=== PATIENT | female | born 1990 | race Caucasian/White ===

== ENCOUNTER → 2024-07-12 14:56 | Outpatient (REF) | payer BC, SELFPAY | LOC: RAD 14:56 | PROVIDERS: ATTENDING PHYSICIAN Nurse Practitioner Family | DX: M79.604 Pain in right leg (principal) | CPT/HCPCS: 93971 ==

== ENCOUNTER → 2024-10-26 14:34 | Outpatient (REF) | payer BC, SELFPAY | LOC: RAD 14:34 | PROVIDERS: ATTENDING PHYSICIAN Internal Medicine Hematology & Oncology; FAMILY PHYSICIAN Nurse Practitioner Adult Health | DX: R59.0 Localized enlarged lymph nodes (principal) | CPT/HCPCS: 76536 ==

== ENCOUNTER → 2024-10-27 12:21 | Outpatient (REF) | payer BC, SELFPAY | LOC: RAD 12:21 | PROVIDERS: ATTENDING PHYSICIAN Nurse Practitioner Adult Health; FAMILY PHYSICIAN Nurse Practitioner Adult Health | DX: R59.0 Localized enlarged lymph nodes (principal) | CPT/HCPCS: 70491; Q9967 ==

== ENCOUNTER 2024-11-01 06:23 | Day surgery (SDC) | payer BC, SELFPAY ==
[2024-11-01] VITALS (9 sets, daily range): BP systolic 107–129; BP diastolic 63–89; BMI 37.0
[2024-11-01] MEDS: TYLENOL 1000 MG PO (11:54)
[2024-11-01] MEDS: SUBLIMAZE 25 MCG IV (14:49)
== END 2024-11-01 15:40 | disposition home or self-care (01) ==
LOC: SDS 06:23
PROVIDERS: ATTENDING PHYSICIAN Otolaryngology
DX: C81.12 Nodular sclerosis Hodgkin lymphoma, intrathoracic lymph nodes (principal); R59.0 Localized enlarged lymph nodes
CPT/HCPCS: 38510; 88305; 88341; 88342; 88365

== ENCOUNTER → 2024-11-09 13:00 | Outpatient (REF) | payer BC, SELFPAY | LOC: RCS 13:00 | PROVIDERS: ATTENDING PHYSICIAN Internal Medicine Hematology & Oncology; FAMILY PHYSICIAN Nurse Practitioner Adult Health | DX: C81.90 Hodgkin lymphoma, unspecified, unspecified site (principal); R59.0 Localized enlarged lymph nodes; R53.82 Chronic fatigue, unspecified; Z68.37 Body mass index [BMI] 37.0-37.9, adult | CPT/HCPCS: 93306; 93356 ==

== ENCOUNTER → 2024-11-10 07:07 | Outpatient (REF) | payer BC, SELFPAY ==
[2024-11-10 07:31] LABS: % Basophils 0.6 % (0-2); % Eosinophils 1.7 % (0-6); % Immature Granulocytes 0.5 % (0-0.5); % Lymphocytes 19.4 % (20.5-51.1); % Neutrophils 71.8 % (42.2-75.2); Absolute Basophils 0.1 10^3/uL (0-0.2); Absolute Eosinophils 0.1 10^3/uL (0-0.7); Absolute Lymphocytes 1.6 10^3/uL (1.2-3.4); Absolute Monocytes 0.5 10^3/uL (0.1-0.6); Absolute Neutrophils 6.1 10^3/uL (1.4-6.5); Hematocrit 39.6 % (37.0-47.0); Hemoglobin 12.5 g/dL (12.0-16.0); Mean Corp Hgb Conc. 31.6 g/dL (33.0-37.0); Mean Corpuscular Hgb 25.7 pg (27.0-31.0); Mean Corpuscular Volume 81.5 fL (81.0-99.0); Mean Platelet Volume 10.4 fL (7.4-10.4); Nucleated Red Blood Cells % 0 %; Platelet Count 358 10^3/uL (130-400); Red Blood Cell Count 4.86 10^6/uL (4.20-5.40); Red Cell Dist. Width 13.1 % (11.5-14.5); White Blood Cell Count 8.5 10^3/uL (4.8-10.8)
[2024-11-10 07:35] VITALS: BP 131/90; BP_SYST 92
[2024-11-10 07:38] VITALS: BMI 36.9
[2024-11-10 07:41] LABS: INR 0.97; PT 13.4 Sec (11.4-14.6)
[2024-11-10] MEDS: NSS (PRESERVATIVE FREE) 0.25 ML IV (08:12)
[2024-11-10] MEDS: ATIVAN 0.5 MG IV (08:16)
[2024-11-10] MEDS: FLUSH (NSS) 1 FLUSH IV (08:17)
[2024-11-10] MEDS: ANCEF 10 IV (09:30)
[2024-11-10 10:20] VITALS: BP 121/76
== END ==
LOC: RADI 07:07
PROVIDERS: ATTENDING PHYSICIAN Internal Medicine Hematology & Oncology; FAMILY PHYSICIAN Physician Assistant
DX: C81.90 Hodgkin lymphoma, unspecified, unspecified site (principal)
CPT/HCPCS: 88305; 88311; 88312; 36415; 36561; 38222; 76937; 77001; 77012; 85025; 85610; 88313; 99152; 99153; C1788

== ENCOUNTER → 2024-11-14 12:26 | Outpatient (REF) | payer BC, SELFPAY | LOC: RSP 12:26 | PROVIDERS: ATTENDING PHYSICIAN Nurse Practitioner Adult Health; FAMILY PHYSICIAN Nurse Practitioner Adult Health | DX: C81.90 Hodgkin lymphoma, unspecified, unspecified site (principal) | CPT/HCPCS: 94727; 94729; 88738; 94010 ==

== ENCOUNTER → 2024-11-20 15:18 | Outpatient (REF) | payer BC, SELFPAY | LOC: RAD 15:18 | PROVIDERS: ATTENDING PHYSICIAN Internal Medicine Hematology & Oncology; FAMILY PHYSICIAN Nurse Practitioner Adult Health | DX: R59.0 Localized enlarged lymph nodes (principal); R53.82 Chronic fatigue, unspecified; Z68.37 Body mass index [BMI] 37.0-37.9, adult; C81.90 Hodgkin lymphoma, unspecified, unspecified site | CPT/HCPCS: 71046 ==

== ENCOUNTER → 2024-11-27 15:20 | Outpatient (REF) | payer BC, SELFPAY ==
[2024-11-27 13:51] LABS: Urine Albumin Negative (Neg - Trace); Urine Bilirubin Negative (Negative); Urine Character Clear (Clear); Urine Color Yellow; Urine Glucose Negative (Negative); Urine Ketone Negative (Negative); Urine Leukocyte Negative (Negative); Urine Nitrite Negative (Negative); Urine Occult Blood Negative (Negative); Urine Specific Gravity 1.005 (<1.030); Urine Urobilinogen Negative (Neg - 1+)
[2024-11-27 14:11] LABS: Urine Red Blood Cell 0-2 /HPF (0-2); Urine Squamous Cell 0-2 /LPF (Few); Urine White Cell 0-2 /HPF (0-5)
== END ==
LOC: OIDL 15:20
PROVIDERS: ATTENDING PHYSICIAN Internal Medicine Hematology & Oncology
DX: R59.0 Localized enlarged lymph nodes (principal); R53.82 Chronic fatigue, unspecified; Z68.37 Body mass index [BMI] 37.0-37.9, adult; C81.90 Hodgkin lymphoma, unspecified, unspecified site
CPT/HCPCS: 81003; 81015; 87086

== ENCOUNTER → 2024-11-30 15:40 | Outpatient (REF) | payer BC, SELFPAY | LOC: RAD 15:40 | PROVIDERS: ATTENDING PHYSICIAN Internal Medicine Hematology & Oncology; FAMILY PHYSICIAN Nurse Practitioner Adult Health | DX: R59.0 Localized enlarged lymph nodes (principal); R53.82 Chronic fatigue, unspecified; Z68.37 Body mass index [BMI] 37.0-37.9, adult; R74.8 Abnormal levels of other serum enzymes; C81.90 Hodgkin lymphoma, unspecified, unspecified site | CPT/HCPCS: 93971 ==

== ENCOUNTER → 2024-12-07 13:28 | Outpatient (REF) | payer BC, SELFPAY ==
[2024-12-07 12:11] LABS: % Basophils 1.4 % (0-2); % Eosinophils 4.8 % (0-6); % Monocytes 9.2 % (1.7-9.3); % Neutrophils 13.6 % (42.2-75.2); Absolute Eosinophils 0.1 10^3/uL (0-0.7); Absolute Lymphocytes 1.5 10^3/uL (1.2-3.4); Absolute Monocytes 0.2 10^3/uL (0.1-0.6); Hematocrit 36.5 % (37.0-47.0); Hemoglobin 11.7 g/dL (12.0-16.0); Mean Corp Hgb Conc. 32.1 g/dL (33.0-37.0); Mean Corpuscular Hgb 25.7 pg (27.0-31.0); Mean Corpuscular Volume 80.2 fL (81.0-99.0); Mean Platelet Volume 10.1 fL (7.4-10.4); Platelet Count 311 10^3/uL (130-400); Red Blood Cell Count 4.55 10^6/uL (4.20-5.40); Red Cell Dist. Width 14.2 % (11.5-14.5)
[2024-12-07 12:13] LABS: Absolute Neutrophils 0.3 10^3/uL (1.4-6.5); White Blood Cell Count 2.1 10^3/uL (4.8-10.8)
[2024-12-07 12:46] LABS: ALT (SGPT) 42 U/L (0-35); AST (SGOT) 25 U/L (14-36); Albumin 4.1 g/dl (3.5-5.0); Alkaline Phosphatase 95 U/L (38-126); Blood Urea Nitrogen 11 mg/dl (7-17); Calcium 9.5 mg/dl (8.4-10.2); Carbon Dioxide 29 mmol/L (22-30); Chloride 103 mmol/L (98-107); Glucose 109 mg/dl (70-99); Potassium 4.4 mmol/L (3.5-5.1); Sodium 141 mmol/L (135-145); Total Bilirubin 0.4 mg/dl (0.2-1.3); Total Protein 6.9 g/dl (6.3-8.2); eGFR > 60.00
== END ==
LOC: OIDL 13:28
PROVIDERS: ATTENDING PHYSICIAN Internal Medicine Hematology & Oncology
DX: R59.0 Localized enlarged lymph nodes (principal); R53.82 Chronic fatigue, unspecified; C81.90 Hodgkin lymphoma, unspecified, unspecified site
CPT/HCPCS: 80053; 85025

== ENCOUNTER → 2024-12-11 08:52 | Outpatient (REF) | payer BC, SELFPAY ==
[2024-12-11 09:01] LABS: % Basophils 0.4 % (0-2); % Eosinophils 0.4 % (0-6); % Lymphocytes 54.9 % (20.5-51.1); % Monocytes 4.3 % (1.7-9.3); Absolute Lymphocytes 1.3 10^3/uL (1.2-3.4); Absolute Monocytes 0.1 10^3/uL (0.1-0.6); Hematocrit 35.8 % (37.0-47.0); Hemoglobin 11.6 g/dL (12.0-16.0); Mean Corp Hgb Conc. 32.4 g/dL (33.0-37.0); Mean Corpuscular Hgb 25.8 pg (27.0-31.0); Mean Corpuscular Volume 79.7 fL (81.0-99.0); Mean Platelet Volume 10.8 fL (7.4-10.4); Platelet Count 145 10^3/uL (130-400); Red Blood Cell Count 4.49 10^6/uL (4.20-5.40); Red Cell Dist. Width 14.4 % (11.5-14.5)
[2024-12-11 09:03] LABS: White Blood Cell Count 2.3 10^3/uL (4.8-10.8)
[2024-12-11 09:04] LABS: Absolute Neutrophils 0.9 10^3/uL (1.4-6.5)
== END ==
LOC: OIDL 08:52
PROVIDERS: ATTENDING PHYSICIAN Internal Medicine Hematology & Oncology
DX: R59.0 Localized enlarged lymph nodes (principal)
CPT/HCPCS: 85025

== ENCOUNTER → 2024-12-15 13:15 | Outpatient (REF) | payer BC, SELFPAY ==
[2024-12-15 12:08] LABS: % Basophils 1.1 % (0-2); % Eosinophils 0.7 % (0-6); % Immature Granulocytes 0.7 % (0-0.5); % Lymphocytes 47.5 % (20.5-51.1); % Monocytes 2.5 % (1.7-9.3); % Neutrophils 47.5 % (42.2-75.2); Absolute Lymphocytes 1.3 10^3/uL (1.2-3.4); Absolute Monocytes 0.1 10^3/uL (0.1-0.6); Absolute Neutrophils 1.3 10^3/uL (1.4-6.5); Hematocrit 35.7 % (37.0-47.0); Hemoglobin 11.7 g/dL (12.0-16.0); Mean Corp Hgb Conc. 32.8 g/dL (33.0-37.0); Mean Corpuscular Volume 79.3 fL (81.0-99.0); Mean Platelet Volume 11.8 fL (7.4-10.4); Platelet Count 256 10^3/uL (130-400); Red Cell Dist. Width 14.2 % (11.5-14.5); White Blood Cell Count 2.8 10^3/uL (4.8-10.8)
== END ==
LOC: OIDL 13:15
PROVIDERS: ATTENDING PHYSICIAN Internal Medicine Hematology & Oncology
DX: R59.0 Localized enlarged lymph nodes (principal); R53.82 Chronic fatigue, unspecified; Z68.37 Body mass index [BMI] 37.0-37.9, adult
CPT/HCPCS: 85025

== ENCOUNTER → 2024-12-26 15:18 | Outpatient (REF) | payer BC, SELFPAY ==
[2024-12-26 10:40] LABS: % Basophils 0.7 % (0-2); % Eosinophils 1.3 % (0-6); % Immature Granulocytes 8.7 % (0-0.5); % Lymphocytes 37.6 % (20.5-51.1); % Monocytes 17.1 % (1.7-9.3); % Neutrophils 34.6 % (42.2-75.2); Absolute Eosinophils 0.1 10^3/uL (0-0.7); Absolute Immature Granulocytes 0.5 10^3/uL (0-0.05); Absolute Lymphocytes 2.3 10^3/uL (1.2-3.4); Absolute Neutrophils 2.1 10^3/uL (1.4-6.5); Hemoglobin 12.2 g/dL (12.0-16.0); Mean Corp Hgb Conc. 31.3 g/dL (33.0-37.0); Mean Corpuscular Hgb 25.7 pg (27.0-31.0); Mean Corpuscular Volume 82.1 fL (81.0-99.0); Platelet Count 322 10^3/uL (130-400); Red Blood Cell Count 4.75 10^6/uL (4.20-5.40); Red Cell Dist. Width 15.8 % (11.5-14.5)
[2024-12-26 10:58] LABS: ALT (SGPT) 42 U/L (0-35); AST (SGOT) 26 U/L (14-36); Alkaline Phosphatase 81 U/L (38-126); Blood Urea Nitrogen 12 mg/dl (7-17); Calcium 9.6 mg/dl (8.4-10.2); Carbon Dioxide 29 mmol/L (22-30); Chloride 103 mmol/L (98-107); Glucose 109 mg/dl (70-99); Potassium 4.4 mmol/L (3.5-5.1); Sodium 141 mmol/L (135-145); Total Bilirubin 0.3 mg/dl (0.2-1.3); Total Protein 6.8 g/dl (6.3-8.2); eGFR > 60.00
== END ==
LOC: OIDL 15:18
PROVIDERS: ATTENDING PHYSICIAN Internal Medicine Hematology & Oncology
DX: R59.0 Localized enlarged lymph nodes (principal); R53.82 Chronic fatigue, unspecified
CPT/HCPCS: 80053; 85025

== ENCOUNTER → 2025-01-09 14:34 | Outpatient (REF) | payer BC, SELFPAY ==
[2025-01-09 11:24] LABS: % Basophils 1.8 % (0-2); % Eosinophils 3.1 % (0-6); % Immature Granulocytes 0.3 % (0-0.5); % Monocytes 16.8 % (1.7-9.3); Absolute Basophils 0.1 10^3/uL (0-0.2); Absolute Eosinophils 0.1 10^3/uL (0-0.7); Absolute Lymphocytes 1.5 10^3/uL (1.2-3.4); Absolute Monocytes 0.6 10^3/uL (0.1-0.6); Absolute Neutrophils 1.1 10^3/uL (1.4-6.5); Hematocrit 37.4 % (37.0-47.0); Mean Corp Hgb Conc. 32.1 g/dL (33.0-37.0); Mean Corpuscular Hgb 25.8 pg (27.0-31.0); Mean Corpuscular Volume 80.4 fL (81.0-99.0); Nucleated Red Blood Cells % 0 %; Platelet Count 343 10^3/uL (130-400); Red Blood Cell Count 4.65 10^6/uL (4.20-5.40); Red Cell Dist. Width 17.1 % (11.5-14.5); White Blood Cell Count 3.3 10^3/uL (4.8-10.8)
[2025-01-09 11:32] LABS: ALT (SGPT) 24 U/L (0-35); AST (SGOT) 20 U/L (14-36); Albumin 4.1 g/dl (3.5-5.0); Alkaline Phosphatase 75 U/L (38-126); Blood Urea Nitrogen 13 mg/dl (7-17); Calcium 9.5 mg/dl (8.4-10.2); Carbon Dioxide 30 mmol/L (22-30); Chloride 102 mmol/L (98-107); Glucose 92 mg/dl (70-99); Potassium 4.2 mmol/L (3.5-5.1); Sodium 139 mmol/L (135-145); Total Bilirubin 0.4 mg/dl (0.2-1.3); Total Protein 6.8 g/dl (6.3-8.2); eGFR > 60.00
== END ==
LOC: OIDL 14:34
PROVIDERS: ATTENDING PHYSICIAN Internal Medicine Hematology & Oncology
DX: R59.0 Localized enlarged lymph nodes (principal)
CPT/HCPCS: 80053; 85025

== ENCOUNTER → 2025-01-22 10:32 | Outpatient (REF) | payer BC, SELFPAY | LOC: RAD 10:32 | PROVIDERS: ATTENDING PHYSICIAN Internal Medicine Hematology & Oncology; FAMILY PHYSICIAN Nurse Practitioner Adult Health | DX: R53.82 Chronic fatigue, unspecified (principal); R59.0 Localized enlarged lymph nodes; Z68.37 Body mass index [BMI] 37.0-37.9, adult; C81.90 Hodgkin lymphoma, unspecified, unspecified site; R74.8 Abnormal levels of other serum enzymes | CPT/HCPCS: 76536 ==

== ENCOUNTER → 2025-01-24 13:40 | Outpatient (REF) | payer BC, SELFPAY ==
[2025-01-24 13:54] VITALS: BP 137/91; BP_SYST 95
== END ==
LOC: RADI 13:40
PROVIDERS: ATTENDING PHYSICIAN Internal Medicine Hematology & Oncology; FAMILY PHYSICIAN Nurse Practitioner Adult Health
DX: C73 Malignant neoplasm of thyroid gland (principal); Z85.71 Personal history of Hodgkin lymphoma
CPT/HCPCS: 88173; 10005

== ENCOUNTER → 2025-02-13 15:43 | Outpatient (REF) | payer BC, SELFPAY | LOC: RCS 15:43 | PROVIDERS: ATTENDING PHYSICIAN Internal Medicine Hematology & Oncology; FAMILY PHYSICIAN Nurse Practitioner Adult Health | DX: C81.90 Hodgkin lymphoma, unspecified, unspecified site (principal); R59.0 Localized enlarged lymph nodes; R53.82 Chronic fatigue, unspecified; Z68.37 Body mass index [BMI] 37.0-37.9, adult; R74.8 Abnormal levels of other serum enzymes; C73 Malignant neoplasm of thyroid gland | CPT/HCPCS: 93306; 93356 ==

== ENCOUNTER 2025-02-18 17:50 | Emergency (ER) | payer BC, SELFPAY ==
[2025-02-18 17:54] VITALS: BP 127/80
[2025-02-18 18:13] LABS: % Basophils 0.6 % (0-2); % Eosinophils 3.1 % (0-6); % Immature Granulocytes 0.2 % (0-0.5); % Lymphocytes 20.6 % (20.5-51.1); % Monocytes 7.4 % (1.7-9.3); % Neutrophils 68.1 % (42.2-75.2); Absolute Basophils 0.1 10^3/uL (0-0.2); Absolute Eosinophils 0.3 10^3/uL (0-0.7); Absolute Lymphocytes 1.7 10^3/uL (1.2-3.4); Absolute Monocytes 0.6 10^3/uL (0.1-0.6); Absolute Neutrophils 5.7 10^3/uL (1.4-6.5); Hematocrit 35.9 % (37.0-47.0); Hemoglobin 11.7 g/dL (12.0-16.0); Mean Corp Hgb Conc. 32.6 g/dL (33.0-37.0); Mean Corpuscular Hgb 26.7 pg (27.0-31.0); Mean Platelet Volume 10.8 fL (7.4-10.4); Nucleated Red Blood Cells % 0 %; Platelet Count 260 10^3/uL (130-400); Red Blood Cell Count 4.38 10^6/uL (4.20-5.40); Red Cell Dist. Width 17.4 % (11.5-14.5); White Blood Cell Count 8.4 10^3/uL (4.8-10.8)
[2025-02-18 18:22] LABS: INR 0.85
[2025-02-18 18:33] LABS: ALT (SGPT) 24 U/L (0-35); AST (SGOT) 22 U/L (14-36); Albumin 4.2 g/dl (3.5-5.0); Alkaline Phosphatase 84 U/L (38-126); Blood Urea Nitrogen 19 mg/dl (7-17); Calcium 9.3 mg/dl (8.4-10.2); Carbon Dioxide 29 mmol/L (22-30); Chloride 108 mmol/L (98-107); Glucose 103 mg/dl (70-99); Potassium 4.4 mmol/L (3.5-5.1); Sodium 142 mmol/L (135-145); Total Bilirubin 0.3 mg/dl (0.2-1.3); Total Protein 6.9 g/dl (6.3-8.2); eGFR > 60.00
[2025-02-18 18:49] LABS: Troponin I < 0.012 ng/ml
--- NOTE | 2025-02-18 19:50 | ED.GENMED ---
History of Present Illness
General
Chief Complaint: Chest Pain
Time Seen by Provider: 02/18/25 19:40
History of Present Illness
History of Present Illness:
Patient is a 34-year-old woman history of Hodgkin's lymphoma, thyroid cancer on chemotherapy presenting to the emergency department chest pain. She woke up at 10 AM with chest pain that was pleuritic. It is not exertional. Has never happened to
her before. No leg swelling hemoptysis. No history of blood clots. She is not on any blood thinners. She called her oncologist who told her to come to the emergency department for evaluation. No family history of cardiac disease. No personal
history of cardiac disease. She called her oncologist who recommended her to go to the emergency department to rule out PE.
Past History
Past History
ED Past Medical History: HTN
ED Past Surgical History: None
Social History
Tobacco: Non-smoker
Alcohol: Occasional
Personal: Single
Living: with family
Employment: Employed
Phy Exam
Physical Exam
Physical Exam:
GENERAL: in no acute distress
HEENT: normocephalic, extraocular movements intact, moist oral mucosa
NECK: normal inspection
RESPIRATORY: no respiratory distress, clear to auscultation bilaterally
CARDIOVASCULAR: regular rate and rhythm
ABDOMEN/: soft, non-distended, non-tender to palpation, no rebound or guarding
EXTREMITIES: non-tender, no edema/swelling
NEUROLOGIC: awake and alert, moves all extremities
SKIN: warm
Scores
Heart Score for Chest Pain Patients
STEMI patient?: Not applicable
Course
Orders/Labs/Results
Orders:
Orders
02/18/25 17:51
Electrocardiogram (*1) Urgent
Reason for Study: Chest Pain
EKG- Treatment ONCE
02/18/25 18:04
Complete Blood Count/With Diff Urgent
Comprehensive Metabolic Panel Urgent
Prothrombin Time Urgent
Troponin I Urgent
02/18/25 19:41
CT Chest PE Study Urgent
Comment:
Reason For Exam: chest pain
Abnormal Lab Results
02/18/25
18:04
Hgb 11.7 L g/dL
(12.0-16.0)
Hct 35.9 L %
(37.0-47.0)
MCH 26.7 L pg
(27.0-31.0)
MCHC 32.6 L g/dL
(33.0-37.0)
RDW 17.4 H %
(11.5-14.5)
MPV 10.8 H fL
(7.4-10.4)
Chloride 108 H mmol/L
(98-107)
BUN 19 H mg/dl
(7-17)
Glucose 103 H mg/dl
(70-99)
02/18/25 18:04
02/18/25 18:04
Vital Signs
Initial and Last Documented VS:
Initial Vital Signs
Temp Pulse Resp BP Pulse Ox
98.4 F 89 18 127/80 99
02/18/25 17:54 02/18/25 17:54 02/18/25 17:54 02/18/25 17:54 02/18/25 17:54
Last Documented Vital Signs
Temp Pulse Resp BP Pulse Ox
98.4 F 89 18 127/80 99
02/18/25 17:54 02/18/25 17:54 02/18/25 17:54 02/18/25 17:54 02/18/25 17:54
MDM/Problems Addressed
Differential Diagnosis Includes:
Patient is a 34-year-old woman with history of Hodgkin's lymphoma, thyroid cancer on treatment presenting to the emergency department with pleuritic chest pain that started at 10 AM. On arrival patient's vital signs are unremarkable and exam is
reassuring. Concern for PE atypical ACS worsening malignancy. Blood work obtained prior to my evaluation is unremarkable. Troponin is normal. Given that the chest pain has been ongoing since 10 AM will obtain single troponon EKG per my
interpretation normal sinus rhythm. Will proceed with CT PE
*Critical Care Note
Total Time (30-74mins, 75-104mins- exclusive of procedures): Not Applicable
Update Note
Update Note:
CT scan per my interpretation with no saddle PE. Per the official read no acute disease and no evidence of PE. Will discharge patient at this time.
ED Attending Note
-
Portions of this chart may have been created with voice recognition software.� Occasional wrong word or��sound alike� substitutions may have occurred due to the inherent limitations of voice recognition software.
Discharge Plan
Departure
Patient Disposition: Home (Routine Discharge)
Date of Disposition: 02/18/25
Time of Disposition: 21:47
Patient with high blood pressure during this ER visit?: No
Discharge Problem:
Chest pain
Instructions: Chest Pain PCP Follow Up
Prescriptions:
No Action
No Current Medications
0
Referrals:
UNKNOWN - PT DOES,NOT KNOW [Unknown Provider]
Activity Restrictions/Additional Instructions:
You were evaluated in the Emergency Department today for chest pain. Your evaluation has shown no signs of medical conditions requiring emergent intervention at this time, however we recommend that you follow up with your primary care physician or
your manager inpatient as soon as possible for further testing as an outpatient.
Please schedule an appointment for follow up with your primary care physician as soon as possible.
Return to the Emergency Department if you experience worsening or uncontrolled chest pain, shortness of breath, light headedness, feeling faint, nausea, vomiting, or any other concerning symptoms.
Thank you for choosing us for your care.
Interventions
Interventions:
*Risk Screen - Suicide Last Done: 02/18/25 17:54
*General Assessment Last Done: 02/18/25 17:54
*Neglect/Abuse Screening Last Done: 02/18/25 17:54
ED- Cardiac Assessment Last Done: 02/18/25 19:51
Discharge Date and Time
Print Language: BENGALI
== END 2025-02-18 22:06 | disposition home or self-care (01) ==
LOC: EMR 17:50
PROVIDERS: Emergency Medicine; EMERGENCY PHYSICIAN Student in an Organized Health Care Education/Training Program; FAMILY PHYSICIAN Nurse Practitioner Adult Health
DX: R07.89 Other chest pain (principal); C73 Malignant neoplasm of thyroid gland; I10 Essential (primary) hypertension; Z85.71 Personal history of Hodgkin lymphoma
CPT/HCPCS: 99284; 71275; 80053; 84484; 85025; 85610; 93005; Q9967

== ENCOUNTER → 2025-03-05 16:29 | Outpatient (REF) | payer BC, SELFPAY | LOC: RAD 16:29 | PROVIDERS: ATTENDING PHYSICIAN Nurse Practitioner Adult Health; FAMILY PHYSICIAN Nurse Practitioner Adult Health | DX: C81.90 Hodgkin lymphoma, unspecified, unspecified site (principal) | CPT/HCPCS: 71260; Q9967 ==

== ENCOUNTER 2025-05-01 06:05 | Day surgery (SDC) | payer BC, SELFPAY ==
[2025-04-18 08:54] LABS: Hematocrit 39.8 % (37.0-47.0); Hemoglobin 12.5 g/dL (12.0-16.0); Mean Corp Hgb Conc. 31.4 g/dL (33.0-37.0); Mean Corpuscular Volume 82.6 fL (81.0-99.0); Platelet Count 232 10^3/uL (130-400); Red Cell Dist. Width 13.7 % (11.5-14.5)
[2025-04-18 09:08] LABS: INR 0.90; PT 12.6 Sec (11.4-14.6)
[2025-04-18 09:09] LABS: APTT 28.2 Sec (23.4-35.0)
[2025-04-18 10:07] LABS: ALT (SGPT) 22 U/L (0-35); AST (SGOT) 19 U/L (14-36); Albumin 4.3 g/dl (3.5-5.0); Alkaline Phosphatase 95 U/L (38-126); Blood Urea Nitrogen 14 mg/dl (7-17); Calcium 9.0 mg/dl (8.4-10.2); Carbon Dioxide 26 mmol/L (22-30); Chloride 107 mmol/L (98-107); Glucose 92 mg/dl (70-99); Potassium 4.7 mmol/L (3.5-5.1); Sodium 140 mmol/L (135-145); Total Protein 6.9 g/dl (6.3-8.2); eGFR > 60.00
[2025-04-18 13:48] VITALS: BMI 37.2
[2025-05-01] VITALS (8 sets, daily range): BP systolic 110–138; BP diastolic 65–86; BMI 37.2
[2025-05-01] MEDS: NEURONTIN 300 MG PO (06:35)
[2025-05-01] MEDS: TYLENOL 1000 MG PO (06:35)
[2025-05-01] MEDS: HEPARIN 5000 UNITS SC (06:48)
[2025-05-01] MEDS: NORMOSOL-R/PLASMALYTE-A 1000 IV (06:48)
--- NOTE | 2025-05-01 09:40 | OR.RPT ---
Operative Report
Operative Report
DATE OF OPERATION: May 01, 2025
PREOPERATIVE DIAGNOSIS: Thyroid Cancer - C73
POSTOPERATIVE DIAGNOSIS: Same
SURGEON: Nixon Meehan M.D.
OPERATION: Right Thyroidectomy and Limited Neck Dissection - 10239
ANESTHESIA: GET
ESTIMATED BLOOD LOSS: 3 cc
DRAINS: None
SPECIMEN: Left thyroid lobe and isthmus with overlying strap muscle & right level paratracheal tissue
FINDINGS: Right thyroid tumor involving the overlying strap muscle
COMPLICATIONS: None
PROCEDURE:
The patient was taken to the operating room and placed in the usual supine position. After adequate general endotracheal anesthesia was established, the patient�s neck was extended, prepped, and draped in the typical sterile fashion. A 4 cm
transcervical incision was made two fingerbreadths above the sternal notch. The skin incision was made with the #15 blade, which was taken through the skin into the subcutaneous tissue. The underlying platysma muscle was divided, and subplatysmal
flaps were created superiorly to the thyroid cartilage and inferiorly to the sternal notch. Strap muscles were identified and at the midline.
Attention was turned to the patient�s right thyroid lobe. The right thyroid lobe was mobilized medially. During this process, the right middle thyroid vein and inferior thyroid artery were dissected and ligated with Ligasure. The tumor was noted to
be stuck to the overlying muscle. The potion of the muscle was excised and left on the tumor. Next, the right superior pole was taken down by dissecting and transecting the superior pole vessels with a Ligasure. The right thyroid lobe was mobilized
medially. During this process, the right recurrent laryngeal nerve was identified and preserved throughout its entire course. The right superior parathyroid gland was identified and preserved. The right thyroid lobe with isthmus was resected from
the trachea and sent to the pathology department.
At this time, the neck dissection was performed. The tissue between the right carotid artery to the trachea into the anterior mediastinum was carefully dissected. The previously identified recurrent laryngeal nerve and parathyroid glands were
preserved. The tissue was removed and sent to the pathology department.
After achieving adequate hemostasis, the strap muscle was approximated with #3-0 Vicryl in a running fashion, and the platysma muscles were reapproximated with #3-0 Vicryl in an interrupted manner. The skin was then closed with #4-0 Monocryl in a
running subcuticular technique. Steri-strips and sterile dressings were applied. The patient tolerated the procedure well. The final instrument, needle, and sponge counts were correct.
[2025-05-01] MEDS: DILAUDID 0.25 MG IV (09:54)
== END 2025-05-01 11:30 | disposition home or self-care (01) ==
LOC: SDS 06:05
PROVIDERS: ATTENDING PHYSICIAN Surgery; FAMILY PHYSICIAN Nurse Practitioner Adult Health
DX: C73 Malignant neoplasm of thyroid gland (principal); C77.1 Secondary and unspecified malignant neoplasm of intrathoracic lymph nodes
CPT/HCPCS: 60220; 36415; 80053; 85027; 85610; 85730; 87070; 88307; 93005

== ENCOUNTER → 2025-06-07 11:25 | Outpatient (REF) | payer BC, SELFPAY | LOC: RAD 11:25 | PROVIDERS: ATTENDING PHYSICIAN Internal Medicine Hematology & Oncology; FAMILY PHYSICIAN Family Medicine; OTHER PHYSICIAN Internal Medicine Endocrinology, Diabetes & Metabolism; OTHER PHYSICIAN Nurse Practitioner Adult Health; OTHER PHYSICIAN Surgery; REFERRING PHYSICIAN Radiology Radiation Oncology | DX: C81.90 Hodgkin lymphoma, unspecified, unspecified site (principal); C73 Malignant neoplasm of thyroid gland; R59.0 Localized enlarged lymph nodes; Z68.37 Body mass index [BMI] 37.0-37.9, adult; R74.8 Abnormal levels of other serum enzymes | CPT/HCPCS: 71260; Q9967 ==

== ENCOUNTER 2025-07-31 06:02 | Day surgery (SDC) | payer BC, SELFPAY ==
[2025-07-31] VITALS (7 sets, daily range): BP systolic 101–121; BP diastolic 67–97; BMI 41.2
[2025-07-31] MEDS: TYLENOL 1000 MG PO (07:22)
[2025-07-31] MEDS: NEURONTIN 300 MG PO (07:22)
[2025-07-31] MEDS: HEPARIN 5000 UNITS SC (07:23)
[2025-07-31] MEDS: NORMOSOL-R/PLASMALYTE-A 1000 IV (07:26)
[2025-07-31 07:34] LABS: Hematocrit 40.0 % (37.0-47.0); Hemoglobin 12.6 g/dL (12.0-16.0); Mean Corp Hgb Conc. 31.5 g/dL (33.0-37.0); Mean Corpuscular Volume 83.5 fL (81.0-99.0); Platelet Count 259 10^3/uL (130-400); Red Cell Dist. Width 14.2 % (11.5-14.5)
[2025-07-31 07:51] LABS: APTT 23.6 Sec (23.4-35.0); INR 1.00; PT 13.5 Sec (11.4-14.6)
--- NOTE | 2025-07-31 09:00 | OR.RPT ---
Operative Report
Operative Report
DATE OF OPERATION: July 31, 2025
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
POSTOPERATIVE DIAGNOSIS: Same
SURGEON: Nixon Meehan M.D.
OPERATION: Completion Total Thyroidectomy � 70322
Right SCV Port removal - 43579
ANESTHESIA: GET
ESTIMATED BLOOD LOSS: 1 cc
DRAINS: None
SPECIMEN: Left thyroid lobe
FINDINGS: None
COMPLICATIONS: None
PROCEDURE:
The patient was taken to the operating room and placed in the usual supine position. After adequate general endotracheal anesthesia was established, the patient�s neck was extended, prepped, and draped in the typical sterile fashion. The old
transcervical incision was reopened. The skin incision was made with the #15 blade, which was taken through the skin into the subcutaneous tissue. The underlying platysma muscle was divided, and subplatysmal flaps were created superiorly to the
thyroid cartilage and inferiorly to the sternal notch. Strap muscles were identified and at the midline.
Attention was turned to the patient�s left thyroid lobe. The left thyroid lobe was mobilized medially. During this process, the left middle thyroid vein and inferior thyroid artery were dissected and ligated with Ligasure. Next, the left superior
pole was taken down by dissecting and transecting the superior pole vessels with a Ligasure. The left thyroid lobe was mobilized medially. During this process, the left recurrent laryngeal nerve was identified and preserved throughout its entire
course. The left superior and inferior parathyroid glands were identified and preserved. The left thyroid lobe with isthmus was resected from the trachea and sent to the pathology department.
After achieving adequate hemostasis, the strap muscle was approximated with #3-0 Vicryl in a running fashion, and the platysma muscles were reapproximated with #3-0 Vicryl in an interrupted manner. The skin was then closed with #4-0 Monocryl in a
running subcuticular technique. Steri-strips and sterile dressings were applied.
Next, attention was turned to the right upper chest. Under sterile conditions, the right port catheter was removed. The incision was reapproximated in two layers. The subcutaneous tissue was reapproximated with # 3-0 Vicryl in an interrupted
fashion. The skin was reapproximated with #4-0 Vicryl in a running subcuticular fashion. Steri-Strips and sterile dressings were applied.
The patient tolerated the procedure well. The final instrument, needle, and sponge counts were correct.
[2025-07-31] MEDS: ROXICODONE 5 MG PO (09:58)
== END 2025-07-31 10:13 | disposition home or self-care (01) ==
LOC: SDS 06:02
PROVIDERS: ATTENDING PHYSICIAN Surgery
DX: C83.30 Diffuse large B-cell lymphoma, unspecified site (principal); D34 Benign neoplasm of thyroid gland; Z85.850 Personal history of malignant neoplasm of thyroid
CPT/HCPCS: 60260; 36590; 85027; 85610; 85730; 88307

== ENCOUNTER → 2025-08-03 10:18 | Outpatient (REF) | payer BC, SELFPAY ==
[2025-08-03 11:13] LABS: Blood Urea Nitrogen 12 mg/dl (7-17); Calcium 7.5 mg/dl (8.4-10.2); Carbon Dioxide 31 mmol/L (22-30); Chloride 99 mmol/L (98-107); Glucose 90 mg/dl (70-99); Potassium 3.6 mmol/L (3.5-5.1); Sodium 136 mmol/L (135-145); eGFR > 60.00
== END ==
LOC: REG 10:18
PROVIDERS: ATTENDING PHYSICIAN Internal Medicine Hematology & Oncology; FAMILY PHYSICIAN Family Medicine
DX: R59.0 Localized enlarged lymph nodes (principal); R53.82 Chronic fatigue, unspecified; Z68.37 Body mass index [BMI] 37.0-37.9, adult; R74.8 Abnormal levels of other serum enzymes; C81.90 Hodgkin lymphoma, unspecified, unspecified site; C73 Malignant neoplasm of thyroid gland
CPT/HCPCS: 36415; 80048; 82330; 83970; 84439; 84443

== ENCOUNTER → 2025-08-06 10:22 | Outpatient (REF) | payer BC, SELFPAY ==
[2025-08-06 10:59] LABS: Hematocrit 40.0 % (37.0-47.0); Hemoglobin 12.9 g/dL (12.0-16.0); Mean Corp Hgb Conc. 32.3 g/dL (33.0-37.0); Mean Corpuscular Volume 82.1 fL (81.0-99.0); Platelet Count 281 10^3/uL (130-400); Red Cell Dist. Width 13.7 % (11.5-14.5)
== END ==
LOC: OIDL 10:22
PROVIDERS: ATTENDING PHYSICIAN Internal Medicine Hematology & Oncology; FAMILY PHYSICIAN Family Medicine
DX: R59.0 Localized enlarged lymph nodes (principal); R53.82 Chronic fatigue, unspecified; Z68.37 Body mass index [BMI] 37.0-37.9, adult; R74.8 Abnormal levels of other serum enzymes; C81.90 Hodgkin lymphoma, unspecified, unspecified site; C73 Malignant neoplasm of thyroid gland
CPT/HCPCS: 36415; 82330; 85025

== ENCOUNTER → 2025-08-08 09:12 | Outpatient (REF) | payer BC, SELFPAY ==
[2025-08-08 09:29] LABS: Hematocrit 38.6 % (37.0-47.0); Hemoglobin 12.5 g/dL (12.0-16.0); Mean Corp Hgb Conc. 32.4 g/dL (33.0-37.0); Mean Corpuscular Volume 82.5 fL (81.0-99.0); Platelet Count 282 10^3/uL (130-400); Red Cell Dist. Width 13.8 % (11.5-14.5)
[2025-08-08 10:52] LABS: Blood Urea Nitrogen 16 mg/dl (7-17); Calcium 8.1 mg/dl (8.4-10.2); Carbon Dioxide 29 mmol/L (22-30); Chloride 101 mmol/L (98-107); Glucose 88 mg/dl (70-99); Potassium 4.4 mmol/L (3.5-5.1); Sodium 137 mmol/L (135-145); eGFR > 60.00
== END ==
LOC: OIDL 09:12
PROVIDERS: ATTENDING PHYSICIAN Internal Medicine Hematology & Oncology; FAMILY PHYSICIAN Nurse Practitioner Adult Health
DX: R59.0 Localized enlarged lymph nodes (principal); R53.82 Chronic fatigue, unspecified; Z68.37 Body mass index [BMI] 37.0-37.9, adult; R74.8 Abnormal levels of other serum enzymes; C81.90 Hodgkin lymphoma, unspecified, unspecified site; C73 Malignant neoplasm of thyroid gland
CPT/HCPCS: 36415; 80048; 82330; 85025